=== PATIENT | male | born 1970 | race Caucasian/White ===

== ENCOUNTER 2017-05-24 00:59 | Emergency (ER) | payer BC ==
[2017-05-24 01:06] VITALS: BP 126/63
[2017-05-24] MEDS ORDERED: Ondansetron 4 MG/2 ML SDV IVPUSH STA (01:12)
[2017-05-24] MEDS ORDERED: Sodium Chloride 0.9% 1,000 ML IV ONE (01:12)
[2017-05-24] MEDS ORDERED: Ondansetron 4 MG/2 ML SDV IVPUSH ONE (01:13)
--- NOTE | 2017-05-24 01:29 | EDM.PDOCBH ---
ED HPI GENERAL MEDICAL PROBLEM - General Chief Complaint: Drug or Alcohol Abuse Stated Complaint: [facility] Time Seen by Provider: 05/24/17 01:10 Source of Information: Reports: Family (), RN Notes Reviewed History Limitations: Reports: Intoxication - History of Present Illness INITIAL COMMENTS - FREE TEXT/NARRATIVE: The patient's states that they were at an event tonight, and the patient drank excessively, approximately between the hours of 18:30 to 23:30. He began vomiting around 23:00. He was brought to the ED because he was becoming less responsive, although he is arousable to verbal stimuli here in the ED. The patient's states that the patient drinks socially, but rarely gets intoxicated. The patient does not have a PCP. - Related Data Allergies Allergy/AdvReac Type Severity Reaction Status Date / Time No Known Allergies Allergy Verified 05/24/17 01:06 Home Meds: Home Meds . [No Known Home Meds] 05/24/17 [History] Past Medical History Endocrine/Metabolic History: Reports: Obesity/BMI 30+ - Past Surgical History HEENT Surgical History: Reports: Tonsillectomy Musculoskeletal Surgical History: Reports: Shoulder Surgery (Bilateral rotator cuff repair), Other (See Below) (Unilateral biceps repair) Social & Family History - Tobacco Use Smoking Status *Q: Never Smoker - Alcohol Use Alcohol Use History: Yes Alcohol Use Frequency: Socially - Recreational Drug Use Recreational Drug Use: No - Living Situation & Occupation Living situation: Reports: , with Spouse, with Family (2 kids) Occupation: Employed ([employer]) ED ROS GENERAL - Review of Systems Review Of Systems: See Below Constitutional: Reports: No Symptoms HEENT: Reports: No Symptoms Respiratory: Reports: No Symptoms Cardiovascular: Reports: No Symptoms Endocrine: Reports: No Symptoms GI/Abdominal: Reports: No Symptoms : Reports: No Symptoms Musculoskeletal: Reports: No Symptoms Skin: Reports: No Symptoms Neurological: Reports: No Symptoms Psychiatric: Reports: No Symptoms Hematologic/Lymphatic: Reports: No Symptoms Immunologic: Reports: No Symptoms ED EXAM, BEHAVIORAL HEALTH - Physical Exam Exam: See Below Exam Limited By: Intoxication General Appearance: WD/WN, Lethargic Eye Exam: Bilateral Eye: Normal Inspection Ears: Normal External Exam, Hearing Grossly Normal Nose: Normal Inspection, No Blood Throat/Mouth: Normal Inspection, Normal Lips, Normal Voice, No Airway Compromise Head: Atraumatic, Normocephalic Neck: Normal Inspection, Full Range of Motion Respiratory/Chest: No Respiratory Distress, Lungs Clear, Normal Breath Sounds, No Accessory Muscle Use Cardiovascular: Normal Peripheral Pulses, Regular Rate, Rhythm, No Gallop, No JVD, No Murmur, No Rub GI/Abdominal: Normal Bowel Sounds, Soft, Non-Tender, No Organomegaly, No Distention, No Abnormal Bruit, No Mass, Other (Obese) (Male) Exam: Deferred Rectal (Males) Exam: Deferred Extremities: Normal Inspection, Normal Range of Motion, No Pedal Edema, Normal Capillary Refill Neurological: Other (Lethargic, but arousable to verbal stimuli. He answered some questions for his ) Psychiatric: Other (Unable to assess) Skin Exam: Warm, Dry, Intact, Normal color, No rash COURSE, BEHAVIORAL HEALTH COMP - Course Vital Signs: Last Vital Signs Temp 36.2 C 05/24/17 01:03 Pulse 86 05/24/17 05:30 Resp 16 05/24/17 01:03 BP 126/63 05/24/17 01:03 Pulse Ox 91 L 05/24/17 05:30 Orders, Labs, Meds: Active Orders 24 hr Category Date Time Status Sodium Chloride 0.9% [Normal Saline] 1,000 ml Med 05/24/17 03:15 Active IV ASDIRECTED Medication Orders Sodium Chloride (Normal Saline) 1,000 mls @ 100 mls/hr IV ASDIRECTED NAHOMI Last Admin: 05/24/17 03:33 Dose: 100 mls/hr Laboratory Tests 05/24/17 05/24/17 05/24/17 Range/Units 01:24 01:24 05:13 WBC 6.16 (4.23-9.07) K/mm3 RBC 5.24 (4.63-6.08) M/mm3 Hgb 15.1 (13.7-17.5) gm/L Hct 43.7 (40.1-51.0) % MCV 83.4 (79.0-92.2) fl MCH 28.8 (25.7-32.2) pg MCHC 34.6 (32.2-35.5) g/dl RDW Std Deviation 39.6 (35.1-43.9) fL Plt Count 199 (163-337) K/mm3 MPV 10.4 (9.4-12.3) fl Neutrophils % (Manual) 57 (40-60) % Band Neutrophils % 0 (0-10) % Lymphocytes % (Manual) 30 (20-40) % Atypical Lymphs % 2 % Monocytes % (Manual) 6 (2-10) % Eosinophils % (Manual) 2 (0.8-7.0) % Basophils % (Manual) 3 H (0.2-1.2) Platelet Estimate Adequate Plt Morphology Comment Normal RBC Morph Comment Normal Sodium 139 (136-145) mEq/L Potassium 4.2 (3.5-5.1) mEq/L Chloride 104 (98-107) mEq/L Carbon Dioxide 27 (21-32) mEq/L Anion Gap 12.2 (5-15) BUN 19 H (7-18) mg/dL Creatinine 1.3 (0.7-1.3) mg/dL Est Cr Clr Drug Dosing 78.76 mL/min Estimated GFR (MDRD) 60 (>60) mL/min BUN/Creatinine Ratio 14.6 (14-18) Glucose 143 H (74-106) mg/dL Calcium 9.0 (8.5-10.1) mg/dL Total Bilirubin 0.3 (0.2-1.0) mg/dL AST 28 (15-37) U/L ALT 61 (16-63) U/L Alkaline Phosphatase 46 (46-116) U/L Total Protein 7.7 (6.4-8.2) g/dl Albumin 4.2 (3.4-5.0) g/dl Globulin 3.5 gm/dL Albumin/Globulin Ratio 1.2 (1-2) Urine Opiates Screen Negative (NEGATIVE) Ur Buprenorphine Scrn Negative (NEGATIVE) Ur Oxycodone Screen Negative (NEGATIVE) Urine Methadone Screen Negative (NEGATIVE) Ur Propoxyphene Screen Negative (NEGATIVE) Ur Barbiturates Screen Negative (NEGATIVE) Ur Tricyclics Screen Negative (NEGATIVE) Ur Phencyclidine Scrn Negative (NEGATIVE) Ur Amphetamine Screen Negative (NEGATIVE) U Methamphetamines Scrn Negative (NEGATIVE) U Benzodiazepines Scrn Negative (NEGATIVE) U Cocaine Metab Screen Negative (NEGATIVE) U Marijuana (THC) Screen Negative (NEGATIVE) Ethyl Alcohol 0.20 (0.00) gm% Medications Generic Name Dose Route Start Last Admin Trade Name Freq PRN Reason Stop Dose Admin Sodium Chloride 1,000 mls @ 100 mls/hr 05/24/17 03:15 05/24/17 03:33 Normal Saline IV 100 mls/hr ASDIRECTED NAHOMI Administration Discontinued Medications Generic Name Dose Route Start Last Admin Trade Name Ilya PRN Reason Stop Dose Admin Sodium Chloride 1,000 mls @ 999 mls/hr 05/24/17 01:12 05/24/17 01:22 Normal Saline IV 05/24/17 02:12 999 mls/hr ONETIME ONE Administration Ondansetron HCl 4 mg 05/24/17 01:12 05/24/17 01:22 Zofran IVPUSH 05/24/17 01:13 4 mg ONETIME STA Administration Ondansetron HCl 4 mg 05/24/17 01:13 05/24/17 01:22 Zofran IVPUSH 05/24/17 01:14 4 mg ONETIME ONE Administration Medical Clearance: 05/24/17 05:21 I am informed by the patient's nurse that the patient woken up, took his IV out , and has gone to the bathroom, providing us a urine sample. 05/24/17 06:07 Test results discussed with the patient. His blood glucose is modestly elevated at 143, consistent with prediabetes. I will refer him to Dr. Hammond for further evaluation. For today's purposes, I am recommending that he stay well hydrated. Departure - Departure Time of Disposition: 06:07 Disposition: Home, Self-Care 01 Condition: Good Clinical Impression: Alcohol intoxication, Hyperglycemia - Discharge Information Referrals: PCP,None [Primary Care Provider] - Ervin Hammond [Physician] - Additional Instructions: You were seen in the emergency room after drinking excessively last night. Workup in the ER included blood work and a urine drug screen. Your alcohol level returned elevated at 0.20. For reference, this is 2-1/2 times over the upper legal limit for driving. Your blood sugar was found to be elevated at 143. This does not mean that you have diabetes, but at the very least, you have prediabetes. We recommend that you follow-up with Dr. Miguel in the clinic for further evaluation. If any other problems, please do not hesitate to return to the ER. - My Orders Last 24 Hours: My Active Orders 05/24/17 03:15 Sodium Chloride 0.9% [Normal Saline] 1,000 ml IV ASDIRECTED - Assessment/Plan Last 24 Hours: My Active Orders 05/24/17 03:15 Sodium Chloride 0.9% [Normal Saline] 1,000 ml IV ASDIRECTED
[2017-05-24] MEDS ORDERED: Sodium Chloride 0.9% 1,000 ML IV SCH (03:15)
== END 2017-05-24 06:16 | disposition home or self-care (01) ==
LOC: JD.ED 00:59
DX: F10.129 Alcohol abuse with intoxication, unspecified (principal); E66.9 Obesity, unspecified; R73.9 Hyperglycemia, unspecified; Y90.0 Blood alcohol level of less than 20 mg/100 ml; Z98.890 Other specified postprocedural states
CPT/HCPCS: 36415; 80053; 80306; 85025; 96361; 96374; 99285; G0480; J2405; J7040; 99284